=== PATIENT | female | born 1970 | race Caucasian/White ===

== ENCOUNTER → 2016-10-13 | Outpatient (CLI) | payer OTHER ==
[~2016-10-13] MED LIST: FLONASE NASAL S16 GM NS; LAMICTAL150 MG PO; LITHIUM 30300 MG/CAP PO; MAXALT MLT10 MG/TAB PO; NEURONTIN300 MG/CAP PO; PREDNISONE20 MG PO; SEROQUEL50 MG PO; SINGULAIR 110 MG/TAB PO; TOPAMAX50 MG PO; ZANTAC 150MG T150 MG PO; ZYRTEC 10MG10 MG PO
== END ==
LOC: BHSO 11:13
DX: F31.81 Bipolar II disorder (principal)

== ENCOUNTER → 2017-01-18 | Outpatient (CLI) | payer OTHER | LOC: BHSO 08:34 | DX: F31.81 Bipolar II disorder (principal) ==

== ENCOUNTER → 2017-05-23 | Outpatient (CLI) | payer OTHER | LOC: BHSO 15:41 | DX: F31.81 Bipolar II disorder (principal) ==

== ENCOUNTER → 2017-06-25 | Outpatient (CLI) | payer OTHER | LOC: BHSO 14:28 | DX: F31.31 Bipolar disorder, current episode depressed, mild (principal) ==

== ENCOUNTER → 2017-07-23 | Outpatient (CLI) | payer OTHER | LOC: BHSO 14:49 | DX: F31.31 Bipolar disorder, current episode depressed, mild (principal) ==

== ENCOUNTER → 2017-11-02 | Outpatient (CLI) | payer OTHER | LOC: BHSO 13:50 | DX: F31.81 Bipolar II disorder (principal) | CPT/HCPCS: G0463 ==

== ENCOUNTER → 2018-01-31 | Outpatient (CLI) | payer OTHER | LOC: BHSO 14:32 | DX: F31.81 Bipolar II disorder (principal) | CPT/HCPCS: G0463 ==

== ENCOUNTER → 2018-07-18 | Outpatient (CLI) | payer OTHER | LOC: BHSO 15:45 | DX: F31.81 Bipolar II disorder (principal) | CPT/HCPCS: G0463 ==

== ENCOUNTER → 2018-10-17 | Outpatient (CLI) | payer OTHER | LOC: BHSO 16:00 | DX: F31.81 Bipolar II disorder (principal) | CPT/HCPCS: G0463 ==

== ENCOUNTER → 2019-02-26 | Outpatient (CLI) | payer OTHER | LOC: BHSO 14:54 | DX: F31.81 Bipolar II disorder (principal) | CPT/HCPCS: G0463 ==

== ENCOUNTER → 2019-04-28 | Outpatient (CLI) | payer OTHER | LOC: BHSO 07:55 | DX: F31.81 Bipolar II disorder (principal) | CPT/HCPCS: G0463 ==

== ENCOUNTER → 2019-05-20 | Outpatient (CLI) | payer OTHER | LOC: BHSO 08:09 | DX: F31.81 Bipolar II disorder (principal) ==